=== PATIENT | female | born 1945 | race Caucasian/White ===

== ENCOUNTER 2018-01-01 07:22 | Day surgery (SDC) | payer MEDICARE, OTHER, SELFPAY ==
[2018-01-01 08:07] VITALS: BP 110/70; PULSE 85; RESP 20; TEMP 36.8; O2SAT 100; BMI 19.5
--- NOTE | 2018-01-01 09:04 | PCM.IMDPSTOP ---
Immediate Post-Op Note Date of Procedure: 01/01/18 Primary Surgeon/Physician: Jennifer Marcano chalk molding machine operator: NOT,DEFINED Pre-Operative Diagnosis: B-cell lymphoma Post-Operative Diagnosis: same, need for IV access for chemotherapy Surgery/Procedure Performed:: placement of permanent indwelling tunnelled catheter in vein with subcutaneous port Description of Surgical Findings:: normal left subclavian vein anatomy to SVC Estimated Blood Loss: < 10 ml Specimen's removed: none Type of Anesthesia:: Local MAC ASA Class: ASA2 Mod Systematic Disease - Admit VTE Documentation VTE Present on Admission: Yes VTE Mechan Device Prophylaxis: SCD's
--- NOTE | 2018-01-01 09:06 | PCM.DC.POR ---
Discharge Diet: No Restrictions Discharge Activity: Return to Normal Activity, May not drive while taking narcotic pain medications. Call your doctor if your incision/area has: Continuous Slow Oozing, Foul Smelling Discharge Additional Dressing/Incision Instructions:: Leave dressing in place. Sponge bathe only until access apparatus removed after chemotherapy tomorrow, then may shower Allergies/Adverse Reactions: Allergies No Known Allergies Allergy (Verified 12/30/17 14:55) Medications to take at Discharge Acyclovir [Zovirax] 400 mg PO BID 12/30/17 Allopurinol 300 mg PO DINNER 12/30/17 Calcium Carbonate/Vitamin D3 [Calcium 600-Vit D3 400 Tablet] 1 each PO BID 12/30/17 Cholecalciferol (Vitamin D3) [Vitamin D3] 1 tab PO DAILY 12/30/17 Sulfamethoxazole/Trimethoprim [Bactrim Ds Tablet] 1 each PO MOWEFR 12/30/17 Hydrocodone/Acetaminophen [[place] 5-325 Tablet] 1 ea PO Q6H PRN PRN #6 tab 01/01/18 The following prescriptions were given: Hydrocodone/Acetaminophen [[place] 5-325 Tablet] 1 ea PO Q6H PRN PRN #6 tab PRN Reason: Severe Pain (-08/06) Primary Care Physician: [facility] Doctor,Out of [Primary Care Provider] - Please Follow Up With: Savanna Dominique PA-C - call When: to be seen in 7-10 days, please call for date and time, thank you
--- NOTE | 2018-01-01 10:06 | RAD_ITS ---
STUDY: X-RAY CHEST REASON FOR EXAM: Female, 72 years old. Line placement. TECHNIQUE: Single AP portable view of the chest. COMPARISON: None. FINDINGS: A left-sided Port-A-Cath has been placed. The tip is at the junction of the superior vena cava and right atrium. The lungs are clear and expanded. There is no demonstrated pleural abnormality. Normal size heart. Normal mediastinum and bucky. Normal visualized pulmonary arteries. Normal visualized aortic arch and descending thoracic aorta. Normal visualized thoracic spine. Prior fusion in the lower cervical spine. Degenerative changes of both shoulder joints. There is no demonstrated abnormality of the visualized soft tissue structures of the upper abdomen. RAD/CXR for Line Placement IMPRESSION: The tip of the left kirby catheter is at the junction of superior vena cava and right atrium. Electronically Signed: Akhil More MD at 10:58 EST Tel [phone], Service support ,
[2018-01-01 10:13] VITALS: BP 110/60; BP 110/70; PULSE 87; RESP 16; TEMP 36.5; O2SAT 100
[2018-01-01 10:18] VITALS: BP 110/70; BP 114/61; PULSE 88; RESP 17; O2SAT 99
[2018-01-01 10:23] VITALS: BP 106/75; BP 110/70; PULSE 86; RESP 17; O2SAT 99
[2018-01-01 10:25] VITALS: BP 110/70; BP 117/66; PULSE 83; RESP 16; TEMP 36.6; O2SAT 99
[2018-01-01 11:20] VITALS: BP 110/70
--- NOTE | 2018-01-02 08:59 | PCM.OPRPT ---
Report of Operation Date of Procedure: 01/01/18 Pre-Operative Diagnosis: B-cell lymphoma Post-Operative Diagnosis: same, need for IV access for chemotherapy Surgery/Procedure Performed:: placement of permanent indwelling tunnelled catheter in left subclavian vein with subcutaneous port Description of Surgical Findings:: normal left subclavian vein anatomy to SVC operations vocational instructor: NOT,DEFINED Type of Anesthesia:: Local MAC Anesthesiologist: Yoli Najera Specimen's removed: none Drains: none Estimated Blood Loss (mL): < 10 mo Fluids Replaced: see anesthesia note Description of Procedure: After informed consent was given, the patient was brought to the operating room and placed in the supine position. Appropriate time out protocol was followed. She was then given IV conscious sedation for anesthesia. The patients upper chest and neck were then prepped with a surgical skin preparation and sterile surgical drapes were placed. After proper landmarks were ascertained, the skin at the upper left chest area was then infiltrated with local anesthetic. A needle trocar was then inserted into the left subclavian vein and there was good aspiration of venous blood. A wire was then threaded into the needle trocar and this was visualized under fluoroscopy to ensure that the wire was in the left subclavian vein. Once this was done, then the needle trocar was removed. A small skin angelica was made with an 11 blade knife at the wire entrance site. The dilator with the introducer sheath attached was then placed over the wire into the left subclavian vein via the Seldinger technique and this was visualized under fluoroscopy. The dilator and sheath were in proper position as visualized by fluoroscopy. The wire and dilator were then removed. The catheter was then threaded into the introducer sheath and was positioned with its tip at the junction of the superior vena cava and the right atrium as visualized under fluoroscopy. The catheter was flushed with a heparin saline mixture prior to placement. A subcutaneous pocket was then created caudad to the catheter insertion site. A transverse skin incision was made after the skin and subcutaneous tissues were infiltrated with local anesthetic. Blunt dissection was then used to create a space large enough for placement of the subcutaneous port. Hemostasis was carefully controlled with electrocautery. The port was sutured to the subcutaneous fascia using vicryl suture at three sites. The catheter was then tunneled into the subcutaneous pocket. The excess catheter was transected. The catheter was then attached to the subcutaneous port using manufacturers guidelines. The port was then placed in the subcutaneous pocket and the sutures were ligated. The subdermal incisional sites were reapproximated with interrupted vicryl suture. The skin was reapproximated with monocryl suture in a subcuticular fashion. Cavilon and steristrips were used for reinforcement of the skin closure and a sterile opsite dressing was applied. The patient tolerated the procedure well. Grafts/Implants Used: PowerPort 8Fr MRI compatable - Complications none noted - Admit VTE Documentation VTE Present on Admission: Yes VTE Mechan Device Prophylaxis: SCD's
== END 2018-01-01 11:21 | disposition home or self-care (01) ==
LOC: SDC 07:26 → AC 07:26
PROVIDERS: Visit Provider Surgery
PROC: (CPT 36561; principal; 2018-01-01 08:45)
DX: Z45.2 Encounter for adjustment and management of vascular access device (principal); C83.38 Diffuse large B-cell lymphoma, lymph nodes of multiple sites; D64.9 Anemia, unspecified; M85.80 Other specified disorders of bone density and structure, unspecified site; R63.4 Abnormal weight loss; Z68.1 Body mass index [BMI] 19.9 or less, adult; R22.2 Localized swelling, mass and lump, trunk; E04.1 Nontoxic single thyroid nodule; M33.10 Other dermatomyositis, organ involvement unspecified; Z79.899 Other long term (current) drug therapy
CPT/HCPCS: 36561; 71045; 77001; J3010; J7050; J7120; C1788

== ENCOUNTER 2020-07-29 12:55 | Day surgery (SDC) | payer MEDICARE, OTHER, SELFPAY ==
--- NOTE | 2020-07-28 17:11 | HP.PCM_ITS ---
History and Physical Date of Admission: 07/29/20 Kathleen Oshea 1945 ? ? REFERRING PHYSICIAN: Tristan Gaona (Dump Motor Operator.Medical Referral Coordinator)* ? CHIEF COMPLAINT: No chief complaint on file. ? HPI: The patient is a 74 year old female presents with recurrence of lymphoma - B cell. She will require portacath placement for IV chemotherapy, this is anticipated to begin next week. She had previous left subclavian portacath placement that had been removed about two years ago. She denies recent DVTs, or bleeding tendencies. ? ? PAST MEDICAL HISTORY Diagnosis Date ? Basal cell carcinoma ? ? Removed. Director Security Risk Management Dr. Sugar Campbell ? Dermatomyositis (HCC) ? ? Resolved. Managed by Propellant Assembler Dr. Jeannie Snyder ? 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 CT abdomen/pelvis demonstrated multifocal retroperitoneal metastatases on 10/23/2018. IR-guided biopsy of groin mass consistent with aggressive B-cell lymphoma ? Intermediate stage nonexudative age-related macular degeneration of both eyes 04/15/2020 ? Weight Loss Sales Consultant Dr. Renato Clemons ? Lymphoma (HCC) 10/23/2018 ? In remission since 11/2017. Managed by Automatic Silk Screen Printer Dr. Kumar Graves ? Multiple thyroid nodules ? ? Osteoarthritis of right shoulder ? ? Orthopedic Surgeon Dr. Abdi Louis ? Osteopenia 12/11/2019 ? BMD T-score was -2.1 on 12/11/2019. ? Pseudophakia, right eye ? ? PAST SURGICAL HISTORY Procedure Laterality Date ? ANTERIOR INTERBODY FUSION, CERVICAL ? 1993 ? C5-6-7 ? ARTHROPLASTY TOTAL SHOULDER Right 11/05/2019 ? Orthopedic Surgeon Dr. Justin Flaherty ? CATARACT EXTRACTION W/ INTRAOCULAR LENS IMPLANT HX Right ? ? 6 years ago ? CATARACT EXTRACTION W/ INTRAOCULAR LENS IMPLANT HX Left 12/31/2019 ? Dr. Hollis ? EYE SURGERY HX Left 2018 ? Laser for Narrow angle ? LAMINECTOMY,LUMBAR ? 1989 ? L4-5 ? LASIK ? 2005 ? [facility] ? PAST SURGICAL HISTORY OF ? 2001 ? Revision of cervical fusion ? MI ANESTH,SHOULDER REPLACEMENT Right ? ? REMOVAL OF TONSILS,<12 Y/O ? ? ? Tonsillectomy ? REMV CATARACT EXTRACAP,INSERT LENS ? 01/26/2013 ? OD (toric) Silvestre Huff MD ? THYROID LOBECTOMY,UNILAT Right 1992 or 1993 ? ? Current Outpatient Medications Medication Sig ? dexamethasone (DECADRON) 4 mg tablet Take 2 tablets by mouth daily with breakfast. ? MVFSGELV-MRHYFOEIJ-HRFRJHCB 3.5 MG/ML-10,000 UNIT/ML-0.1% EYE DROPS Start day after surgery in surgery eye only, One drop 4x/day for 1wk, 3x/day for 1wk, 2x/day for 1wk, 1x/day for 1 wk, then stop ? cyclopentolate (CYCLOGYL) 1 % ophthalmic solution Start day after surgery. One drop in the surgery eye twice a day for one week then stop. ? melatonin 5 mg tablet Take 1 tablet by mouth at bedtime as needed (Difficulty sleeping). ? traZODone (DESYREL) 100 mg tablet Take 1 tablet by mouth daily at bedtime. ? sertraline (ZOLOFT) 25 mg tablet Take 1 tablet by mouth daily with breakfast. ? vit C/E/Zn/coppr/lutein/zeaxan (PRESERVISION AREDS-2 ORAL) Take by mouth twice daily. ? naproxen sodium (ALEVE ORAL) Take 1 tablet by mouth as needed. ? cholecalciferol, vitamin D3, (VITAMIN D3 ORAL) Take 2,000 Units by mouth once daily. ? zoledronic acid (RECLAST) 5 mg/100 mL pgbk PREMIX piggyback Inject 100 mL intravenously one time only for 1 dose. ? omega 3-yta-vck-fish oil (FISH OIL) 100-160-1,000 mg cap Take 1 capsule by mouth twice daily. ? ? MULTIVITAMIN ORAL Take 1 tablet by mouth once daily. ? Calcium-Cholecalciferol, D3, (CALCIUM 600 WITH VITAMIN D3) 600 mg(1,500mg) - 400 unit chew Take 600 mg by mouth twice daily. ? ? ALLERGIES: Cephalosporins, Drug Class [Proton Pump Inhibitors], Folic Acid, Nsaids (Non-Steroidal Anti-Inflammatory Drug), Penicillins, Quinolones, Salicylates, Sulfa Drugs [Sulfa (Sulfonamide Antibiotics)], and Adhesive ? PERSONAL HISTORY: Social History ? Tobacco Use ? Smoking status: Never Smoker ? Smokeless tobacco: Never Used Substance Use Topics ? Alcohol use: Yes ? ? Alcohol/week: 2.5 - 25.0 standard drinks ? ? Types: 1 - 2 Glasses of Wine (5oz) per week ? ? Comment: once or twice weekly ? Drug use: No ? FAMILY HISTORY Problem Relation Age of Onset ? other (no myositis) Other ? ? Cancer Mother 85 ? breast ? Cancer Maternal Grandmother ? ? breast ? Thyroid No Family History ? ? No Ocular Disease No Family History ? ? ? REVIEW OF SYSTEMS: General - denies fevers, denies weight loss/anorexia Cardiovascular - denies chest pain Pulmonary - denies shortness of breath Gastrointestinal - denies abdominal pain Neurological - denies seizures Genitourinary - denies burning with urination Hematological - denies spontaneous/prolonged bleeding Skin - denies nonhealing skin wounds,has had skin cancer Musculoskeletal -?has intermittent back?pain s/p cervical vertebral surgery with plates Endocrine - denies diabetes Psychological ??denies hallucinations ? PHYSICAL EXAMINATION: General: ?The patient is 72 year old female, well nourished, well hydrated in no acute distress. ?The patient is oriented to time, place, and person. VITALS:?Blood pressure 137/64, pulse 88, RR 16 Ht: 5'5 weight 124#.? Head ??Normocephalic. EOM intact with sclera clear and no icterus noted. Wearing glasses.??Mouth with mucus membranes moist. Neck - supple with no jugular venous distention noted. Trachea is midline. Chest - well healed previous left sided portacath site Lungs ??clear to auscultation. Normal breath sounds No rales/rhonchi/wheezing noted. No labored breathing noted, such as retractions. . Heart ??normal heart sounds. No rubs/clicks/murmurs noted. Regular rate. Abdomen ??soft and benign. Normal bowel sounds. No abdominal bruits noted. Extremities ??no calf tenderness noted. Skin ??normal skin integrity. Neurological ??patient is right handed,?no focal deficits noted Psych ??calm and appropriate ? ? IMPRESSION: Lymphoma recurrence, need for VAD placement for IV chemotherapy ? PLAN: I have discussed the above with the patient and her who is present with her. I have offered portacath placement. I have explained the procedure to the patient. I have counseled the patient as to the risks of the procedure, including but not limited to: infection, bleeding, injury to any blood vessels/nerves, scar tissue, injury to the lungs such as hemothorax/pneumothorax, thromboses of the port, non functioning of the port, line sepsis, wound infections, complications of anesthesia, etc. ? the patient understands. Patient states that she prefers left sided placement. The patient was offered a surgery/procedure. The provider and patient have discussed in detail the risk of exposure to and/or potential harm posed by the COVID-19 virus with having a surgery/procedure at this time versus the risk of delaying the surgery/procedure. It is not possible to know either the risk of delaying the surgery or procedure or chance of getting an infection with perfect accuracy, but a joint decision was made between the patient and the provider to proceed at this time with the scheduled surgery/procedure. The patient wishes to proceed. ? ? I have answered all questions to the patient?s satisfaction and the patient has no further questions. . Diagnoses: (C83.38) Diffuse large B-cell lymphoma of lymph nodes of multiple regions (HCC) (primary encounter diagnosis) (Z45.2) Exhausted vascular access
[2020-07-29 13:32] VITALS: BP 140/78; PULSE 78; RESP 16; TEMP 36.9; O2SAT 100; BMI 20.6
[2020-07-29] MEDS: Lactated Ringers 1,000 ML 75 ML IV (13:50)
--- NOTE | 2020-07-29 14:32 | OP.PCM_ITS ---
Report of Operation Date of Procedure: 07/29/20 Pre-Operative Diagnosis: aggressive B cell lymphoma, need for IV access Post-Operative Diagnosis: same Surgery/Procedure Performed:: placement of permanent indwelling tunneled catheter in left internal jugular vein with subcutaneous port Description of Surgical Findings:: normal left IJ anatomy to SVC Type of Anesthesia:: Local MAC Anesthesiologist: Harley Meadows Specimen's removed: none Estimated Blood Loss (mL): < 5 ml Fluids Replaced: 400 ml RL Description of Procedure: After informed consent was given, the patient was brought to the Operating Room. Appropriate time out protocol was followed. The patient was then placed in the supine position. The patient was then given IV conscious sedation for anesthesia. The patient?s upper chest and neck were then prepped with a surgical skin preparation and sterile surgical drapes were placed. The ultrasound machine was brought in for real time imaging. The transducer of the US machine was sheathed in a sterile covering. It was used to identify the location of the left internal jugular vein. After proper landmarks were ascertained, the skin at the upper left chest area and neck was then infiltrated with 1% xylocaine with epinephrine. A needle trocar was then inserted into the left internal jugular vein as ascertained by the US transducer. Entrance of the needle was visualized under US. There was good aspiration of venous blood. A wire was then threaded into the needle trocar. This was visualized using US. Then the fluoroscopy arm was brought into the field and visualization of the wire transversing to the SVC was noted. Once this was done, then the needle tro car was removed. A small skin angelica was made with an 11 blade knife at the wire entrance site. The dilator with the introducer sheath attached was then placed over the wire into the left internal jugular vein via the Seldinger technique and this was visualized under fluoroscopy. The dilator and sheath were in proper position as visualized by fluoroscopy in real time. The wire and dilator were then removed. The catheter was then threaded into the introducer sheath and was positioned with its tip at the junction of the superior vena cava and the right atrium as visualized under fluoroscopy in real time. I personally reviewed all of the above fluoroscopic images and noted that the positions of the wire and catheter were correct so that the next step could be conducted. The catheter was flushed with a heparin saline mixture prior to placement. A subcutaneous pocket was then created caudad to the catheter insertion site. A transverse skin incision was made after the skin and subcutaneous tissues were infiltrated with local anesthetic. This was at the site of the previous skin incision. Blunt dissection was then used to create a space large enough for placement of the subcutaneous port. Hemostasis was carefully controlled with electrocautery. The port was sutured to the subcutaneous fascia using vicryl suture at three sites. The catheter was then tunneled into the subcutaneous pocket. The excess catheter was transected. The catheter was then attached to the subcutaneous port using educational resource center teacher?s guidelines. The port was then placed in the subcutaneous pocket and the sutures were ligated. The subdermal incisional sites were reapproximated with interrupted vicryl suture. The skin was reapproximated with monocryl suture in a subcuticular fashion. Cavilon and steristrips were used for reinforcement of the skin closure and a sterile opsite dressing was applied. Sponge, needle, and instrument count were verified and correct at the time of skin closure. The patient was brought to the Recovery Room in stable condition Grafts/Implants Used: PowerPort 8Fr, Lot [id number], exp 2021-11-27 - Complications none noted - Admit VTE Documentation VTE Present on Admission: Yes VTE Mechan Device Prophylaxis: SCD's
--- NOTE | 2020-07-29 14:34 | DCINST_ITS ---
Discharge Diet: No Restrictions Discharge Activity: Return to Normal Activity, May not drive while taking narcotic pain medications. Call your doctor if your incision/area has: Continuous Slow Oozing, Foul Smelling Discharge Call your doctor if you observe: Fever of 101 or Higher Additional Instructions: Recommended pain control regimen - May take 600 mg ibuprofen (Motrin) and then in 3-4 hours, may take 650 mg acetaminophen (Tylenol), then in 3-4 hours may take 600 mg ibuprofen, then in 3- 4 hours may take 650 mg acetaminophen and so on for 2-3 days May take narcotic pain medication for pain that is not controlled by above and at night for comfort through the night Leave dressings in place May get dressings wet in shower - do not scrub in the area and pat dry Do not soak - no tub baths/swimming If dressing appears to be soiled/open at one end/no longer sealed - may remove dressing but leave site uncovered (do not replace with any type of dressing) - leave steristrips in place - may get wet but do not scrub in the area and pat dry Allergies/Adverse Reactions: Allergies adhesive tape Allergy (Verified 07/29/20 13:28) Rash Medications to take at Discharge Calcium Carbonate/Vitamin D3 [Calcium 600-Vit D3 400 Tablet] 1 each PO BID 12/30/17 Cholecalciferol (Vitamin D3) [Vitamin D3] 1 tab PO DAILY 12/30/17 Hydrocodone/Acetaminophen [[place] 5-325 Tablet] 1 ea PO Q6H PRN PRN #6 tab 01/01/18 Dexamethasone [Decadron] 8 mg PO DAILY 07/27/20 Sertraline HCl [Zoloft] 25 mg PO DAILY 07/27/20 traZODone [Desyrel] 100 mg PO QHS 07/27/20 Primary Care Physician: DILEEP TREADWELL [Other] Test Results: Test results from this visit will be discussed in further detail at your follow- up appointment, if applicable. Please Follow Up With: Jennifer Marcano MD - please call if any questions/concerns When: to be seen as per needed
--- NOTE | 2020-07-29 15:29 | RAD_ITS ---
STUDY: X-RAY CHEST REASON FOR EXAM: Female, 74 years old. Post op vascular port insertion TECHNIQUE: 1 view COMPARISON: Prior chest radiograph from 01/01/2018 FINDINGS: A left jugular Port-A-Cath terminates in the proximal superior vena cava with no complication of line placement. The lungs are clear and expanded. There is no demonstrated pleural abnormality. Normal size heart. Normal mediastinum and bucky. Normal visualized pulmonary arteries. Normal visualized aortic arch and descending thoracic aorta. Anterior cervical spine fusion hardware is included in the [id number]. Status post right shoulder arthroplasty. There is no demonstrated abnormality of the visualized soft tissue structures of the upper abdomen. RAD/CXR for Line Placement IMPRESSION: Left jugular Port-A-Cath terminates in the proximal superior vena cava with no complication of line placement. No acute cardiopulmonary findings or changes. Electronically Signed: Anuja Torres MD at 17:05 EDT , Service support ,
[2020-07-29 15:40] VITALS: BP 111/68; BP 140/78; PULSE 79; RESP 18; TEMP 36.2; O2SAT 100
[2020-07-29 15:45] VITALS: BP 119/68; BP 140/78; PULSE 88; RESP 18; O2SAT 100
[2020-07-29 15:50] VITALS: BP 114/64; BP 140/78; PULSE 82; RESP 18; O2SAT 100
[2020-07-29 15:55] VITALS: BP 117/73; BP 140/78; PULSE 86; RESP 16; TEMP 36.3; O2SAT 100
[2020-07-29 16:38] VITALS: BP 113/96; BP 140/78; PULSE 77; RESP 16; TEMP 36.5; O2SAT 100
== END 2020-07-29 16:40 | disposition home or self-care (01) ==
LOC: SDC 13:02 → AC 13:03
PROVIDERS: Referring Provider Surgery; Visit Provider Surgery
PROC: (CPT 36561; principal; 2020-07-29 14:15)
DX: Z45.2 Encounter for adjustment and management of vascular access device (principal); C83.38 Diffuse large B-cell lymphoma, lymph nodes of multiple sites; Z79.899 Other long term (current) drug therapy; M19.011 Primary osteoarthritis, right shoulder; H35.30 Unspecified macular degeneration; M85.80 Other specified disorders of bone density and structure, unspecified site
CPT/HCPCS: 00532; 36561; 71045; 77001; J7120; C1788